=== PATIENT | male | born 1955 | race Caucasian/White ===

== ENCOUNTER 2022-07-24 23:37 | Observation (INO) | payer MEDICARE, SELFPAY ==
[2022-07-24 23:48] VITALS: BP 155/85; PULSE 70; O2SAT 99
[2022-07-24 23:51] VITALS: BP 155/85; PULSE 79; RESP 18; TEMP 36.3; O2SAT 98; BMI 35.7
--- NOTE | 2022-07-24 23:59 | DI.CT.S_ITS ---
PROCEDURE: CT ABDOMEN PELVIS W CON INDICATIONS: severe R sided abdominal pain TECHNIQUE: After the administration of intravenous contrast, axial sections acquired from the lung bases to the pubic symphysis. Coronal and sagittal reformats were performed. For radiation dose reduction, the following was used: automated exposure control, adjustment of mA and/or kV according to patient size. COMPARISON: None. FINDINGS: Image quality: Excellent. Lung bases: Unremarkable. Heart: No significant findings. ABDOMEN: Liver: Unremarkable. Gallbladder: There is a large gallstone measuring up to 1.9 x 3.6 cm at the gallbladder neck, with mild adjacent gallbladder inflammation. Biliary ducts: Unremarkable. Pancreas: Unremarkable. Spleen: Unremarkable. Adrenal Glands: Unremarkable. Kidneys and Ureters: Unremarkable except for presence of relatively large cysts 1 at each kidney measuring up to 5.4 cm on the right and 7.6 cm on the left Stomach and Bowel: Stomach, small bowel loops, and colon are unremarkable. Peritoneum: No abnormal intraperitoneal fluid. No free air. Note is made of mild edema within the deep mesentery of the small bowel, extending from the upper abdomen into the abdomen/pelvis junction. The appearance is considered most likely a manifestation of mesenteric panniculitis. Ventral Wall: No hernias. Abdominal Nodes: No retroperitoneal or mesenteric adenopathy by size criteria. Vessels: Aorta and inferior vena cava are normal in size. PELVIS: Pelvic Organs: Unremarkable. Bladder: Unremarkable. Pelvic Nodes: No enlarged lymph nodes. Miscellaneous: No hernias are seen. Bones: Unremarkable. IMPRESSION: The dominant abnormality of concern is presence of a large partially calcified gallstone likely impacted at the gallbladder neck, with mild inflammation of the gallbladder wall in that area. Presumed cholecystitis. A 2nd abnormality is less specific, with an appearance of mesenteric panniculitis, chronicity uncertain. This appearance can be coincidental and asymptomatic, but also can be associated with chronic abdominal pain, even with progression. Dominant renal cysts present bilaterally as discussed above. These likely are is asymptomatic. Dictated by: Don Karimi M.D. on 07/25/2022 at 0:53 Approved by: Don Karimi M.D. on 07/25/2022 at 1:00
[2022-07-25] VITALS (10 sets, daily range): BP systolic 106–140; BP diastolic 62–85; PULSE 51–61; RESP 15–39; TEMP 35.9–36.7; O2SAT 94–98; BMI 35.7
--- NOTE | 2022-07-25 | ED_ITS ---
HPI - Abdominal Pain General Chief Complaint: Abdominal Pain Stated Complaint: pain to rt. side abd/vomiting Time Seen by Provider: 07/24/22 23:41 Source: patient and family Mode of arrival: Ambulatory History of Present Illness HPI narrative: 66-year-old male nonsmoker with noncontributory medical history presents with his in the chief complaint of sudden-onset right upper abdominal pain that started tonight at about 5pm. He states the pain came on relatively quickly and is severe in nature. He states that it seems to be made worse when he moves but is just quite intense on the whole. He denies any palliation of the pain and no radiation of the pain. He is had multiple episodes of nausea and vomiting and these episodes do not impact the level of pain whatsoever. He denies fever or chills. He denies any new medications or history of the same. He is never had any abdominal surgeries. He denies urinary complaints or change in bowel habits Related Data Allergies Allergy/AdvReac Type Severity Reaction Status Date / Time Penicillins Allergy Mild Redness of Verified 07/25/22 01:02 Skin Review of Systems Review of Systems Narrative: GENERAL: Denies chills, fatigue, malaise, fever, sweats. HEENT: Denies sinus pain, ear pain, sore throat, difficulty swallowing, dizziness. RESPIRATORY: Denies dyspnea, cough, wheezing, hemoptysis, sputum. CARDIOVASCULAR: Denies chest pain, palpitations, orthopnea, edema, GASTROINTESTINAL: See HPI : Denies dysuria, frequency, incontinence, hematuria, urinary retention. MUSCULOSKELETAL: denies weakness, joint pain, or bony pain SKIN: Denies rash, skin lesions, or other NEUROLOGIC: Denies weakness, headache, numbness, change in speech, confusion, seizures, incoordination. PSYCHIATRIC: No concerning psychosocial issues. 12 point review of systems is negative except for those stated above Patient History Social History Smoking Status: Never smoker Smoking Status: Never smoker alcohol intake frequency: a few times a week Alcohol type: hard liquor Substance Use Type: does not use Exam Narrative Exam Narrative: GENERAL: [66] year old patient appears stated age. Well-developed patient, in moderate distress, clearly in pain, holding an emesis bag HEAD: Atraumatic. Normocephalic. EYES: Pupils equal round and reactive. Extraocular motions intact. No scleral icterus. No injection or drainage. ENT: Nose without bleeding, purulent drainage. Throat without erythema, tonsillar hypertrophy or exudate. Airway patent. NECK: Trachea midline. Non tender CARDIOVASCULAR: Regular rate and rhythm without murmurs, gallops, or rubs. RESPIRATORY: Clear to auscultation. Breath sounds equal bilaterally. No wheezes, rales, or rhonchi. GASTROINTESTINAL: Abdomen soft, tender in the right upper quadrant, bowel sounds present but decreased, nondistended. EXTREMITIES: No edema or joint tenderness. BACK: Nontender without deformity or crepitance. No flank tenderness. NEURO: AOx3. SKIN: No rash or erythema of visible areas Initial Vital Signs Initial Vital Signs: Vital Signs Pulse Rate 70 07/24/22 23:48 Blood Pressure 155/85 H 07/24/22 23:48 Pulse Oximetry 99 07/24/22 23:48 Course Orders Ordered: ED Orders 07/24/22 23:59 CT abdomen pelvis w con Stat Complete Blood Count AUTO DIFF Stat Comprehensive Metabolic Panel Stat Lactate (Lactic Acid) Stat Lipase Stat Magnesium Stat 07/25/22 EKG-12 Lead Routine 07/25/22 01:36 COVID19 -Nasal RAPID Stat Levofloxacin (Levaquin) 500 mg in 100 mls @ 100 mls/hr IV NOW ONE Stop: 07/25/22 02:25 Last Admin: 07/25/22 01:50 Dose: 100 mls/hr Documented By: MONICA Discontinued Medications Hydromorphone HCl (Hydromorphone 0.5 Mg Inj) 0.5 mg IV NOW ONE Stop: 07/24/22 23:59 Last Admin: 07/25/22 00:10 Dose: 0.5 mg Documented By: BS Hydromorphone HCl (Hydromorphone 0.5 Mg Inj) 0.5 mg IV NOW ONE Stop: 07/25/22 00:57 Last Admin: 07/25/22 01:04 Dose: 0.5 mg Documented By: BS Sodium Chloride (Normal Saline 0.9%) 1,000 mls @ 1,000 mls/hr IV BOLUS ONE Stop: 07/25/22 00:57 Last Infusion: 07/25/22 01:15 Dose: 0 mls/hr Documented By: Admin: 07/25/22 00:10 Dose: 1,000 mls/hr Documented By: MONICA Ondansetron HCl (Ondansetron 4 Mg/2 Ml Inj) 4 mg IV NOW ONE Stop: 07/24/22 23:59 Last Admin: 07/25/22 00:10 Dose: 4 mg Documented By: MONICA Consultations Consultation #1: discussed with Dr. Ordaz (Gen Surg) requests admission to her service. clear liquids, fluids, Levaquin, pain control Vital Signs Vital signs: Vital Signs - 8 hr 07/24/22 23:51 07/24/22 23:48 07/24/22 23:48 Temperature 97.4 F L Pulse Rate 79 70 Respiratory Rate 18 Blood Pressure 155/85 H 155/85 H Pulse Oximetry 98 99 Oxygen Delivery Method Room Air 07/25/22 00:00 07/25/22 00:00 07/25/22 00:37 Temperature Pulse Rate 51 L 55 L Respiratory Rate Blood Pressure 134/76 Pulse Oximetry 98 94 Oxygen Delivery Method 07/25/22 00:56 07/25/22 00:56 07/25/22 01:00 Temperature Pulse Rate 54 L Respiratory Rate 39 H Blood Pressure 138/69 140/77 Pulse Oximetry 97 Oxygen Delivery Method 07/25/22 01:00 Temperature Pulse Rate 54 L Respiratory Rate 25 H Blood Pressure Pulse Oximetry 97 Oxygen Delivery Method MDM - Abdominal Pain Lab Data 07/24/22 23:59 07/24/22 23:59 Labs: Lab Results 07/24/22 07/24/22 07/24/22 Range/Units 23:59 23:59 23:59 WBC 9.2 (4.5-11.0) X10^3/uL RBC 4.68 (4.5-5.9) X10^6/uL Hgb 14.5 (13.5-17.5) g/dL Hct 41.8 (41-53) % MCV 89.2 (80-100) fL MCH 31.1 (26-34) PG MCHC 34.8 (30-36) % RDW 13.0 (11.6-14.8) % Plt Count 207 (150-400) X10^3/uL Neut % (Auto) 73.7 (50-75) % Lymph % (Auto) 17.3 L (25-40) % Noble % (Auto) 5.1 (3-14) % Eos % (Auto) 2.5 (2-4) % Baso % (Auto) 1.4 (0-2) % Neut # (Auto) 6800 (7756-8101) /uL Lymph # (Auto) 1600 (2951-6229) /uL Noble # (Auto) 500 (0-900) /uL Eos # (Auto) 200 (0-450) /uL Baso # (Auto) 100 (0-100) /uL Sodium 140 (137-145) mmol/L Potassium 4.0 (3.4-5.1) mmol/L Chloride 101 (98-107) mmol/L Carbon Dioxide 29 (22-32) mmol/L BUN 14 (9-20) mg/dL Creatinine 0.84 (0.66-1.25) mg/dL Estimated GFR > 60 (>60) mL/min BUN/Creatinine Ratio 16.7 (6-22) Glucose 125 H (80-110) mg/dL Lactate 1.6 (0.7-2.1) mmol/L Calcium 9.4 (8.4-10.2) mg/dL Magnesium 1.9 (1.6-2.3) mg/dL Total Bilirubin 1.3 (0.2-1.3) mg/dL AST 36 (17-59) IU/L ALT 36 (<50) IU/L Alkaline Phosphatase 61 (38-126) U/L Total Protein 7.8 (6.3-8.2) g/dL Albumin 4.7 (3.5-5.0) g/dL Globulin 3.1 (1.7-4.1) g/dL Albumin/Globulin Ratio 1.5 (1.0-2.8) Lipase 56 (23-300) U/L [facility] Narrative Medical decision making narrative: 66-year-old male with persistent vomiting and right upper quadrant pain after eating tonight has very reassuring labs and improve pain with medications listed above, however imaging demonstrates early cholecystitis with a stone stuck in the neck of the gallbladder. There is no evidence of obstruction or common bile duct dilatation, bilirubin, LFTs and alk-phos are within normal limits. Patient requires hospitalization for ongoing treatment and stabilization, likely surgical intervention. Discharge Plan Departure Patient Disposition: Admitted As Inpatient Clinical Impression: Acute cholecystitis Admit Date/Time: 04/02/23 01:29 Admit Provider: Mayi Ordaz
[2022-07-25] MEDS: SODIUM CHLORIDE 0.9% 1,000 ML 1000 ML IV (00:10)
[2022-07-25] MEDS: HYDROMORPHONE 0.5 MG INJ IV ×2 (00:10→01:04)
[2022-07-25] MEDS: ONDANSETRON 4 MG/2 ML INJ IV (00:10)
[2022-07-25 00:19] LABS: Add Manual Diff / Slide Review NO; Basophils Absolute Auto 100 /uL (0-100); Basophils Percent Auto 1.4 % (0-2); Eosinophils Absolute Auto 200 /uL (0-450); Eosinophils Percent Auto 2.5 % (2-4); Hematocrit 41.8 % (41-53); Hemoglobin 14.5 g/dL (13.5-17.5); Lymphocytes Absolute Auto 1600 /uL (1100-4500); Lymphocytes Percent Auto 17.3 % (25-40); Mean Corpuscular HGB Conc 34.8 % (30-36); Mean Corpuscular Hemoglobin 31.1 PG (26-34); Mean Corpuscular Volume 89.2 fL (80-100); Monocytes Absolute Auto 500 /uL (0-900); Monocytes Percent Auto 5.1 % (3-14); Neutrophils Absolute Auto 6800 /uL (1500-7000); Neutrophils Percent Auto 73.7 % (50-75); Platelet Count 207 X10^3/uL (150-400); Red Blood Cell Count 4.68 X10^6/uL (4.5-5.9); White Blood Cell Count 9.2 X10^3/uL (4.5-11.0)
[2022-07-25 00:25] LABS: Alanine Aminotransferase 36 IU/L (<50); Albumin 4.7 g/dL (3.5-5.0); Albumin Globulin Ratio 1.5 (1.0-2.8); Alkaline Phosphatase 61 U/L (38-126); Aspartate Aminotransferase 36 IU/L (17-59); BUN Creatinine Ratio 16.7 (6-22); Bilirubin Total 1.3 mg/dL (0.2-1.3); Blood Urea Nitrogen 14 mg/dL (9-20); Calcium 9.4 mg/dL (8.4-10.2); Carbon Dioxide 29 mmol/L (22-32); Chloride 101 mmol/L (98-107); Estimated Glomerular Filt Rate > 60 mL/min (>60); Globulin 3.1 g/dL (1.7-4.1); Glucose 125 mg/dL (80-110); HEMOLYSIS < 15 (0-50); Lactate (Lactic Acid) 1.6 mmol/L (0.7-2.1); Lipase 56 U/L (23-300); Magnesium 1.9 mg/dL (1.6-2.3); Sodium 140 mmol/L (137-145); Total Protein 7.8 g/dL (6.3-8.2)
[2022-07-25] MEDS: levoFLOXacin 500 MG/100 ML PIGGYBACK 100 MG IV ×2 (01:50→21:10)
[2022-07-25 01:54] LABS: COVID19 -Nasal RAPID Negative (Negative)
[2022-07-25] MEDS: SODIUM CHLORIDE 0.9% 1,000 ML 125 ML IV ×2 (03:47→11:56)
--- NOTE | 2022-07-25 12:49 | PM.HP.1 ---
History of Present Illness History of Present Illness Date Patient Seen: 07/25/22 Time Patient Seen: 11:00 Chief complaint: pain to rt. side abd/vomiting Narrative: Mr. Osorio is pretty healthy 66-year-old male with hypertension hyperlipidemia and gout who is visiting [place] when he started to have severe sudden right upper quadrant pain that made him seek care in the emergency room. His labs were relatively unremarkable but a CT scan showed a large gallstone in the neck of the gallbladder and some inflammation of the gallbladder wall. Upon taking some history it seems like maybe he has had some similar pains though not as bad in the past where he is had sudden onset of nausea or sort of ?stomach upset? his says this might have been 2 or 3 times per year in the last few years. Yesterday evening the pain started around 4:00 p.m. and gradually increased the last food that he had before the pain started was a chili dog for lunch. He was had a little bit of stomach pain but still was able to eat some beef for dinner but after this the pain became more severe and intolerable prompting him to come to the emergency room. This morning he is feeling much better he says his pain is almost completely resolved. He has been tolerating a clear liquid diet and really does not feel very hungry right now but at least he is not terribly nauseated. [facility] Social History household members: spouse Smoking Status: Never smoker Meds Home Medications and Allergies Home Medications Medication Instructions Recorded Confirmed Type allopurinol 300 mg tablet 300 mg PO DAILY 07/25/22 07/25/22 History amlodipine 5 mg tablet 5 mg DAILY 07/25/22 07/25/22 History cetirizine 5 mg tablet 5 mg PO DAILY 07/25/22 07/25/22 History magnesium citrate 125 mg capsule 250 mg PO DAILY 07/25/22 07/25/22 History bplaypnj-cwdojoei-gmjvo acid 400 1 tab PO DAILY 07/25/22 07/25/22 History mcg-vit K 20 mcg-lycop 300 mcg tablet (One-A-Day Men's Multivitamin) potassium gluconate 550 mg (90 mg) 550 mg PO DAILY 07/25/22 07/25/22 History tablet rosuvastatin 10 mg tablet 10 mg DAILY 07/25/22 07/25/22 History Allergies Allergy/AdvReac Type Severity Reaction Status Date / Time Penicillins Allergy Mild Redness of Verified 07/25/22 01:02 Skin Exam Vital Signs (past 8 hours): - 07/25/22 04:52 07/25/22 08:17 07/25/22 12:00 Temperature 96.7 F L 97.2 F L 97.2 F L Pulse Rate 58 L 61 60 Respiratory Rate 18 18 18 Blood Pressure 125/65 119/69 106/64 Pulse Oximetry 96 95 94 Oxygen Flow Rate 0 0 0 Oxygen Delivery Method Room Air Oxygen Flow Rate 0 Const General: cooperative, healthy appearing and comfortable Nutritional Appearance: obese Orientation: alert, awake and oriented x3 HENMT Head: normal to inspection Mouth: oral mucosae normal Eyes General: appearance normal, both eyes and all related structures Resp Effort & Inspection: normal respiratory effort and able to speak in complete sentences Cardio Pulses: radial pulses present GI Palpation: soft and tender (Mild right upper quadrant) Objective Labs 07/24/22 23:59 07/24/22 23:59 Labs: Laboratory Results - last 24 hr 07/24/22 07/24/22 07/24/22 23:59 23:59 23:59 WBC 9.2 RBC 4.68 Hgb 14.5 Hct 41.8 MCV 89.2 MCH 31.1 MCHC 34.8 RDW 13.0 Plt Count 207 Neut % (Auto) 73.7 Lymph % (Auto) 17.3 L Victoria % (Auto) 5.1 Eos % (Auto) 2.5 Baso % (Auto) 1.4 Neut # (Auto) 6800 Lymph # (Auto) 1600 Victoria # (Auto) 500 Eos # (Auto) 200 Baso # (Auto) 100 Sodium 140 Potassium 4.0 Chloride 101 Carbon Dioxide 29 BUN 14 Creatinine 0.84 Estimated GFR > 60 BUN/Creatinine Ratio 16.7 Glucose 125 H Lactate 1.6 Calcium 9.4 Magnesium 1.9 Total Bilirubin 1.3 AST 36 ALT 36 Alkaline Phosphatase 61 Total Protein 7.8 Albumin 4.7 Globulin 3.1 Albumin/Globulin Ratio 1.5 Lipase 56 SARS-CoV-2 (PCR) 07/25/22 01:36 WBC RBC Hgb Hct MCV MCH MCHC RDW Plt Count Neut % (Auto) Lymph % (Auto) Victoria % (Auto) Eos % (Auto) Baso % (Auto) Neut # (Auto) Lymph # (Auto) Victoria # (Auto) Eos # (Auto) Baso # (Auto) Sodium Potassium Chloride Carbon Dioxide BUN Creatinine Estimated GFR BUN/Creatinine Ratio Glucose Lactate Calcium Magnesium Total Bilirubin AST ALT Alkaline Phosphatase Total Protein Albumin Globulin Albumin/Globulin Ratio Lipase SARS-CoV-2 (PCR) Negative Assessment & Plan Assessment and plan (1) Acute cholecystitis: Status: Acute Plan I have personally reviewed the labs and imaging studies and I agree with the diagnosis of acute cholecystitis. I usually recommend gallbladder surgery prior to discharge under these circumstances. Although I did discuss because he is visiting other options including treatment with antibiotics and outpatient follow-up for cholecystectomy. He understood the options but would like to proceed. Further I discussed risks benefits and alternatives of laparoscopic cholecystectomy including but not limited to need to open bleeding, infection, need for further procedures, injury to organs requiring surgery to repair them, in particular common bile duct injury which might require transfer to a tertiary care for definitive repair. These risks are very rare but in particular common bile duct injury is serious and so I want to make sure every patient understands this risk. He is there with his and friend at the bedside he is fully cognizant and expresses understanding of the risks of surgery as well as the benefits and alternatives and he would like to proceed with surgery tomorrow as soon as possible. Further plan: Continue antibiotics advance diet as tolerated, NPO after midnight, okay to start home meds, DVT prophylaxis.
[2022-07-25] MEDS: ENOXAPARIN 40 MG/0.4 ML SYRINGE SUBCUT (13:04)
[2022-07-25] MEDS: AMLODIPINE 5 MG TABLET PO (13:33)
--- NOTE | 2022-07-25 14:19 | CM.DANOTE ---
Patient is a 66 yo male who was admitted on 07/25/22 today for Abd Pain. Pt has MCR and [facility] MCR for insurance and his PCP is out of town. EMR was reviewed. Per Surgeon, pt with acute cholecystitis with stone in the neck and recommendation of Lap Saba and pt agreeable and NPO after midnight tonight for surg tomorrow Mon. SW met briefly bedside with pt and spouse and friend and explained role and they confirm they live at home in [place] and are active and independent at baseline and are here visiting from [place]. Pt confirms he has a hx of similar symptoms and would like to proceed with surgery and do not anticipate any needs at d/c as spouse is bedside and can transport and assist at d/c if needed and their local friends can help as well and then once pt recovers they will return home. Plan: SW to follow closely for plan of surgical intervention tomorrow Mon for Lap Saba and any further identified discharge planning needs before pt goes back home to [place]. TAMI Roger Discharge Planning/Care Management CM Discharge Assessment Start: 07/25/22 14:17 Freq: Status: Active Protocol: Document 07/25/22 14:18 BF (Rec: 07/25/22 14:19 BF [id number]) Discharge Planning Assessment Assigned Personal Counselor TAMI Hu DPOA/Assigned Designee Name informally spouse Roxanne Contact Information [phone] Advance Directives? No Advance Directives on File No History Provided By Patient,Significant Other, Medical Record Has Patient been admitted in last 30 No days? Prior Living Arrangements House Household Members spouse Type of transporation used prior to Drives own vehicle admit Independent with ADL's Yes Is patient alert and oriented? Yes Caregiver for Another No Barriers to Discharge No Discharge Plan Home Transportation Arrangement spouse and friend bedside Referrals Initiated None needed Additional Comment Pending lap saba tomorrow Whiteboard Updated in Patient Room with Yes name and ext. # of Personal Counselor Review Status In Process Please Provide Date Initial DC 07/25/22 Assessment Was Performed Next Review Type Continued Stay Review
[2022-07-26] VITALS (13 sets, daily range): BP systolic 116–144; BP diastolic 59–75; PULSE 56–84; RESP 14–18; TEMP 35.9–36.3; O2SAT 90–98; BMI 35.7
--- NOTE | 2022-07-26 | PATH_ITS ---
[facility] Accession Number: [id number] No. of containers..01 Tissue . 01 Material submitted: . gallbladder - GALLBLADDER . 01 Diagnosis: Gallbladder, Cholecystectomy: Chronic cholecystitis, cholesterolosis, and cholelithiasis. Negative for dysplasia and neoplasia. MRV 07/29/2022 1240 Local . 01 Electronically signed: . Emily Martinez MD, Pathologist NPI- [id number] . 01 Gross description: . The specimen is received in formalin labeled with the patient's name, , and gallbladder, and consists of an intact gallbladder measuring 7.5 x 3.7 x 3.4 cm. The serosa is yellow and smooth while the hepatic surface is rough and unremarkable. The cystic duct is received closed with a clamp, is inked blue, and no pericystic lymph node is identified. The lumen contains dark green mucoid bile and a single firm roughened calculus grossly obstructing the cystic duct measuring 4.3 cm in greatest dimension. The mucosa is green to mott and velvety with multiple pinpoint yellow areas consistent with cholesterol and a small green polypoid structure measuring 0.2 cm in greatest dimension. No additional lesions are identified. The kramer average 0.3 cm thick. [employer] sections to include the cystic duct margin and full thickness sections with polyp are submitted in cassette A1. ([id number]) /MRV 07/28/2022 1737 Local . 01 Pathologist provided ICD-10: K81.1 . 01 CPT . 881687 Specimen Comment: A courtesy copy of this report has been sent to [facility]ology Performed at: 01 [facility] [address] [place] [address] [address], [place], [place] [id number] MD Braydon Russell MD Phone: [phone]
--- NOTE | 2022-07-26 09:41 | SUR.HOLD ---
Due to staff illness, surgery postponed until this afternoon. returned to room 221 with belongings.
[2022-07-26] MEDS: AMLODIPINE 5 MG TABLET PO (09:51)
[2022-07-26] MEDS: allopurinoL 100 MG TABLET 300 MG PO (09:51)
[2022-07-26] MEDS: LORATADINE 10 MG TABLET PO (09:51)
[2022-07-26] MEDS: MAGNESIUM OXIDE 400 MG TABLET PO (09:52)
[2022-07-26] MEDS: ENOXAPARIN 40 MG/0.4 ML SYRINGE SUBCUT (09:56)
--- NOTE | 2022-07-26 10:14 | PM.PREOP ---
Pre-operative Note Interval Note History & Physical reviewed/Exam performed by Physician: Yes Changes to H&P: No
--- NOTE | 2022-07-26 14:59 | SUR.HOLD ---
back to Pre op for surgery. NPO had small sip of H2O with meds on the floor. SCD's applied, Vitals obtained, monitoring equipment placed. Still complains of same dull ache to RUQ.
--- NOTE | 2022-07-26 18:00 | SUR.OPER ---
Supine on padded OR bed, head on pillow, safety belt at thigh, left arm padded and tucked at side. Right arm secured on padded arm board <90 degrees abduction. Legs uncrossed. Padded footboard in place. Tape over blanket to secure lower legs.
--- NOTE | 2022-07-26 18:15 | SUR.OPER ---
glasses in labeled bag to pacu with patient
--- NOTE | 2022-07-26 18:32 | PM.OP.1 ---
Operative Date/Time/Diagnoses Date of procedure: 07/26/22 Time of procedure: 18:32 Pre-op diagnosis: Acute cholecystitis Post-op diagnosis: same Procedure & Clinicians Procedure: Laparoscopic cholecystectomy Same procedure as scheduled: Yes Indications: Acute cholecystitis Surgeon: Mayi Ordaz Click Yes if Unassisted: Yes Anesthesia Type: General Operative Notes Findings: Very very large gallstone Specimen(s): other (Gallbladder) Procedure in detail: Patient was taken to the operating room and placed supine on the operating room table. Time-out was performed. Bilateral SCDs were in place and antibiotics were administered. General endotracheal anesthesia was induced. The abdomen was prepped and draped in the usual sterile fashion. Local anesthetic was infused above the umbilicus a 11 blade scalpel was used to incise the skin using electrocautery this was carried down through the subcutaneous tissues to Tato retractors were used to elevate the anterior abdominal wall fascia. This fascia was entered sharply with an 11 blade scalpel under direct visualization. A finger sweep confirmed the intra-abdominal location, 2-0 Vicryl stay sutures were placed through the fascial wall, and Madelyn trocar was placed into the abdomen. The abdomen was then insufflated. The 5 mm 30 degree scope was placed into the abdomen and the abdomen was inspected for any sign of entry injury. The gallbladder was distended but the amount of inflammation was not discouraging. The 5 mm accessory trocarsx3 were then placed after infusing local anesthetic under direct visualization in the usual locations. The gallbladder was then grasped and retracted cephalad. Dissection of the critical view commenced. The cystic duct was seen and the cystic artery in the usual location. A photograph was obtained of the critical view. The cystic artery was then doubly clipped and ligated the cystic duct was clipped twice on the stay side and once on the specimen side and ligated again. Next I worked my way through the posterior tissues and encountered a few areas that appeared as though they may have some vessels within them. These were clipped and the specimen side was cauterized. The gallbladder was then removed from the gallbladder wall fossa and during this process unfortunately the clip on the cystic duct on the specimen came loose spilling some bile and small gallstones. This was then cleaned with the suction bulk tank driver. During the process of suction irrigation the irrigate her caused a last small laceration in the liver. This caused some bleeding which was controlled with electrocautery and a strip of Surgicel. Finally after getting and inspecting the whole operative site for hemostasis the last thread of the gallbladder was removed from the gallbladder fossa and the gallbladder specimen was placed in the Endo-Catch bag. A 2nd piece of Surgicel was placed in the liver bed and over the dissection site out of an abundance of caution. Next I removed the lateral-most trocars under direct visualization and desufflated the abdomen the umbilical trocar was then removed and the specimen was taken out at that time. The large gallstone required that I open further the umbilical wound in order to remove it. Unfortunately again some small amount of bile spilled at this time again was cleaned up was suctioned irrigation. The larger fascial incision was then closed with additional 0 Vicryl sutures in a [id number]. The skin was closed with running Monocryl the subxiphoid port was removed after all the air that I could was expelled and the wounds were then dressed with skin glue. The patient tolerated the procedure well and went in good condition to the postoperative care unit the EBL was between 50 and 100 mL and there were no complications. Complications: none Post-operative Condition: stable Disposition: PACU
--- NOTE | 2022-07-26 18:49 | PC.NURSE ---
Pt kept NPO throughout the day. He is A&OX4, VSS, afebrile on RA. He verbalizes understanding of procedure. Surgeon Orlin explained procedure and schedule at bedside this a.m. to and patient. He is taken to pre op via w/ch at approximately 1530. supportive at bedside.
[2022-07-26] MEDS: OXYCODONE IR 5 MG TABLET PO (18:55)
--- NOTE | 2022-07-26 19:26 | PC.NURSE ---
post op pt to AC from PACU at 1915. vss; o2 92% on 2L NC with continuous monitor on. pt alert and oriented. tolerating drinks of water. lap sites x4 well approximated with skin glue and without overlying bandages. urinal in reach. call light in reach. supportive family member at bedside. bed alarm on.
[2022-07-26] MEDS: DOCUSATE 100 MG CAPSULE PO (21:10)
[2022-07-26] MEDS: HYDROMORPHONE 0.5 MG INJ IV (21:11)
[2022-07-27] MEDS: OXYCODONE IR 10 MG TABLET PO ×3 (01:20→09:41)
[2022-07-27 02:39] VITALS: BP 126/62; PULSE 76; RESP 17; TEMP 36.1; O2SAT 94
[2022-07-27 07:45] VITALS: BP 113/50; PULSE 62; RESP 18; TEMP 36.3; O2SAT 93
[2022-07-27] MEDS: MAGNESIUM OXIDE 400 MG TABLET PO (09:06)
[2022-07-27] MEDS: allopurinoL 100 MG TABLET 300 MG PO (09:06)
[2022-07-27] MEDS: AMLODIPINE 5 MG TABLET PO (09:07)
[2022-07-27] MEDS: DOCUSATE 100 MG CAPSULE PO (09:07)
[2022-07-27] MEDS: MULTIVITAMIN 1 TABLET 1 TAB PO (09:08)
[2022-07-27] MEDS: LORATADINE 10 MG TABLET PO (09:20)
--- NOTE | 2022-07-27 12:01 | CM.DPC ---
DCP Discharge Home Per Surgeon, pt had surgery last night and seemed to tolerate well and pain is controlled and tolerating diet and ambulating and stable for d/c tonight and no identified barriers to discharge. Per RN, no concerns with discharge and supportive family bedside and to provide transport to friend's house. Plan: Patient to d/c home today via spouse and friend POV and outpt f/u before return back to home with spouse in [place]. No SW needs at this time. TAMI Roger
--- NOTE | 2022-07-27 12:02 | PC.NURSE ---
Pt is A&OX3, VSS, afebrile on RA. He is ambulating in the room independently and tolerating breakfast well. Abdomen is soft and tender near incision sites. Incisions are C/D/I. Slightly hypoactive BS+x4. MD Ordaz at bedside this a.m. clearing patient for discharge home this a.m. He and verbalize understanding of site care, medications, activity limitations as well as s/sx of complication/infection. He is escorted via w/ch to private vehicle with his and all of their belongings to private vehicle with brother in-law for discharge home at approximately 1020 a.m.
--- NOTE | 2022-08-21 15:14 | PM.DS.1 ---
History of Present Illness History of Present Illness Chief complaint: pain to rt. side abd/vomiting Narrative: Mr. Osorio is pretty healthy 66-year-old male with hypertension hyperlipidemia and gout who is visiting [place] when he started to have severe sudden right upper quadrant pain that made him seek care in the emergency room. His labs were relatively unremarkable but a CT scan showed a large gallstone in the neck of the gallbladder and some inflammation of the gallbladder wall. Upon taking some history it seems like maybe he has had some similar pains though not as bad in the past where he is had sudden onset of nausea or sort of ?stomach upset? his says this might have been 2 or 3 times per year in the last few years. Yesterday evening the pain started around 4:00 p.m. and gradually increased the last food that he had before the pain started was a chili dog for lunch. He was had a little bit of stomach pain but still was able to eat some beef for dinner but after this the pain became more severe and intolerable prompting him to come to the emergency room. This morning he is feeling much better he says his pain is almost completely resolved. He has been tolerating a clear liquid diet and really does not feel very hungry right now but at least he is not terribly nauseated. Discharge Providers Provider Date of admission: 07/25/22 01:29 Discharge Date: 07/27/22 Discharge provider: Mayi Ordaz MD Summary Hospital Course Discharge Diagnosis: Acute cholecystitis Hospital Course: Patient presented with acute cholecystitis underwent a laparoscopic cholecystectomy and was discharged home in good condition on postoperative day 1. He was from out of town and his follow-up was planned for when he returned. I discussed with he and his postoperative instructions etc. for a good amount of time. Status at Discharge Cognitive/behavioral status at discharge: oriented Overall status at discharge: patient is progressing back to baseline Time Spent with Patient Time spent: Less than 30 minutes Exam Vital Signs (past 8 hours): Fraction of Inspired Oxygen 28 SaO2/FiO2 Ratio 332 Oxygen Delivery Method Nasal Cannula Oxygen Flow Rate 0 Const General: cooperative, healthy appearing and comfortable [facility] Head: normal to inspection Resp Effort & Inspection: normal respiratory effort and able to speak in complete sentences GI Palpation: soft and tender (Appropriately tender) Other: Wounds are clean dry and intact with Steri-Strips in place. Objective Labs 07/24/22 23:59 04/01/23 23:59 PFSH Social History household members: spouse Smoking Status: Never smoker alcohol intake: current Discharge Assessment & Plan Assessment and Plan Assessment: Postoperative day 1 status post laparoscopic cholecystectomy doing well. Plan of Treatment: Standard postoperative instructions were given. He prefers to follow-up in [place] where he is visiting and [place] from. 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 Discharge Plan Discharge Plan Patient Disposition: Home Discharge orders & Medications Prescriptions: New docusate sodium 100 mg Capsule 100 mg PO BID Qty: 30 0RF Rx Instructions: Take while taking vicodin for pain to prevent constipation. If you become constipated any way you may take anything [id number] that works for you or please call the office if you need guidance. ibuprofen 800 mg tablet 800 mg PO Q6H Qty: 30 0RF Rx Instructions: I recommend alternating ibuprofen with either Percocet OR Tylenol (follow the recommendations for Percocet and Tylenol in order to make sure you do not have more than the daily recommended dose of Tylenol). Can take it with a bite of food that would be preferred. oxycodone-acetaminophen 5-325 mg tablet 2 tab PO Q6H PRN (Reason: pain) Qty: 20 0RF Rx Instructions: You may take 2 tabs of Percocet every 6 hours as needed if you prefer to take 1 tab of Percocet then you may take 1 Tylenol with it every 6 hours. If the Percocet is too strong you may take [address] of Percocet every 6 hours. Alternate with ibuprofen so that you are taking something every 3 hours. Please call the office if you have questions. Continued allopurinol 300 mg tablet 300 mg PO DAILY Patient Comments: TAKE 1 TABLET BY MOUTH EVERY DAY amlodipine 5 mg tablet 5 mg DAILY Patient Comments: TAKE 1 TABLET BY MOUTH EVERY DAY rosuvastatin 10 mg tablet 10 mg DAILY Patient Comments: TAKE 1 TABLET BY MOUTH EVERY DAY AT BEDTIME cetirizine 5 mg Tablet 5 mg PO DAILY potassium gluconate 550 mg (90 mg) Tablet 550 mg PO DAILY magnesium citrate 125 mg Capsule 250 mg PO DAILY One-A-Day Men's Multivitamin 400-20-300 mcg Tablet 1 tab PO DAILY Follow up/Referrals: Mayi Ordaz MD [Physician] - (Please call the office 15/11 with any questions or concerns. After hours or on the weekends there is a surgeon on-call who is happy to answer any questions. Please stay on the line and send a message through the answering service. If you have questions about anything please do not hesitate to call the office.) Diet/Activity/Treatments Diet: Diet as Tolerated and Regular Diet comment: Recommend powdered fiber supplement once or twice daily Activity: No lifting greater than 30 lb for 4 weeks after surgery. Do not do any strenuous activity. Normal activity such as walking outside and climbing stairs, is ok. If you notice pain, stop. You may drive when you no longer are taking Narcotic pain medication. Skin/Wound/Dressing Care Report to your healthcare provider any signs of infection, such as:: chills, fever, night sweats, increased pain, unusual drainage and unusual redness Other wound treatment: Ok to shower, let water run over it, don't scrub. No ointments. Pat dry afterwards. No tub baths, and don't soak underwater, for 2 weeks. There are Steristrips covering the wound but also stitches under the skin which will dissolve. Visit Report/Discharge Packet Stand Alone Forms: Patient Portal/API, Stroke Signs & Symptoms Discharge Data Attending Provider: Mayi Ordaz Admit Date/Time: 07/25/22 01:29 Discharges patient from system. Discharge Date/Time: 07/27/22 10:25
== END 2022-07-27 10:25 | disposition home or self-care (01) ==
LOC: ED 07-25 00:03 → AC 07-25 01:38
PROVIDERS: Admitting Provider Surgery; Emergency Provider Emergency Medicine; Referring Provider Emergency Medicine; Visit Provider Surgery
PROC: 0FT44ZZ Resection of Gallbladder, Percutaneous Endoscopic Approach (ICD-10-PCS; CPT 47562; principal; 2022-07-26 16:45)
DX: K80.00 Calculus of gallbladder with acute cholecystitis without obstruction (principal); I10 Essential (primary) hypertension; Z20.822 Contact with and (suspected) exposure to COVID-19
CPT/HCPCS: 47562; 36415; 74177; 80053; 81003; 83605; 83690; 83735; 85025; 87635; 93005; 94760; 96361; 96365; 96366; 96375; 96376; 99222; 99284; C9803; G0378; J1100; J1170; J1650; J1956; J2250; J2405; J2704; J3010; Q9967